=== PATIENT | female | born 1985 ===

== ENCOUNTER 2021-03-24 15:33 | Emergency (ER) | payer SELFPAY ==
[2021-03-24] MEDS ORDERED: Morphine 2 MG/ML SYRINGE IVPUSH ONE (16:00)
[2021-03-24] MEDS ORDERED: Morphine 2 MG/ML SYRINGE ONE (16:30)
[2021-03-24] MEDS ORDERED: Morphine 4 MG/ML VIAL ONE ×3 (16:53→19:22)
--- NOTE | 2021-03-24 17:18 | CR ---
DATE OF SERVICE: 03/24/2021 CLINICAL DATA: INJURY Right ankle: There there is a trimalleolar fracture subluxation of the ankle joint. There is and oblique fracture through the distal fibular diametaphysis with lateral displacement and angulation of the distal fragment with respect to the proximal. The talus is subluxed laterally 2.4 cm with respect to the talar dome on the frontal view. There is a transverse fracture through the medial malleolus of the distal tibia with 2 cm lateral displacement of the distal fracture fragment. There is also mildly displaced fracture through the posterior malleolus of the distal tibia. No other acute abnormalities. MTDD
[2021-03-24] MEDS ORDERED: Ondansetron 4 MG/2 ML SDV ONE (17:47)
[2021-03-24] MEDS ORDERED: Etomidate 2 MG/ML 10 ML SDV IVPUSH ONE (17:55)
[2021-03-24] MEDS ORDERED: Ondansetron 4 MG/2 ML SDV IVPUSH ONE (18:15)
[2021-03-24] MEDS ORDERED: Morphine 4 MG/ML VIAL IVPUSH ONE ×3 (18:20→19:17)
--- NOTE | 2021-03-24 18:22 | EDM.PDOC ---
ED HPI GENERAL MEDICAL PROBLEM - General Chief Complaint: Lower Extremity Injury/Pain Stated Complaint: RLE injury Time Seen by Provider: 03/24/21 17:15 Source of Information: Reports: Patient History Limitations: Reports: No Limitations - History of Present Illness INITIAL COMMENTS - FREE TEXT/NARRATIVE: 36-year-old female presents to the ED complaining of right ankle pain/deformity. Patient had a trip and fall yesterday, over a cord in her house landing with her full weight onto her ankle which buckled and rolled. Patient did not strike her head, neck, back or lose consciousness. Patient had immediate pain after the fall described as a 10/10 on the pain scale. Patient has been drinking heavily over the past week and a half. Patient has no other complaints. Pertin ent medical history: neurological work-up for some involuntary jerking of her limbs, with no diagnosis at this time, unknown if it is related to her alcohol use. Patient denies chest pain, shortness of breath, syncope/near syncope, nausea vomiting, diarrhea or constipation, black tarry stool/blood in her stool, headache, blurred vision. Treatments [employer]: Reports: Other (see below) (Alcohol) - Related Data Allergies Allergy/AdvReac Type Severity Reaction Status Date / Time No Known Allergies Allergy Verified 03/24/21 16:11 Home Meds: Home Meds NK [No Known Home Meds] 03/24/21 [History] Review of Systems - Review of Systems Review Of Systems: See Below Constitutional: Reports: No Symptoms Eyes: Reports: No Symptoms Ears: Reports: No Symptoms Nose: Reports: No Symptoms Mouth/Throat: Reports: Other (Cracked lips at the corners) Respiratory: Reports: No Symptoms Cardiovascular: Reports: No Symptoms GI/Abdominal: Reports: No Symptoms Genitourinary: Reports: No Symptoms Musculoskeletal: Reports: Back Pain (Chronic) Skin: Reports: No Symptoms Neurological: Reports: Gait Disturbance, Other (Limb twitching/jerking) Psychiatric: Reports: Depression ED EXAM, GENERAL - Physical Exam Exam: See Below Free Text/Narrative:: 36-year-old female found lying in stretcher in trauma bay 3. Patient in obvious distress due to pain secondary to deformed right ankle. Patient is alert and oriented 3/3 GCS 4 5 6, smells of EtOH. Speaking in full sentences. Exam Limited By: No Limitations General Appearance: Alert, WD/WN, Severe Distress (Pain) Eye Exam: Bilateral Eye: EOMI, PERRL Ears: Hearing Grossly Normal Throat/Mouth: Normal Voice, No Airway Compromise, Other (Poor dentition, angular cheilitis) Head: Atraumatic, Normocephalic Neck: Normal Inspection, Supple, Non-Tender, Full Range of Motion Respiratory/Chest: No Respiratory Distress, Lungs Clear, Normal Breath Sounds, No Accessory Muscle Use, Chest Non-Tender Cardiovascular: Normal Peripheral Pulses, Regular Rate, Rhythm, No Edema, No Gallop, No JVD, No Murmur, No Rub GI/Abdominal: Normal Bowel Sounds, Soft, Non-Tender, No Organomegaly, No Distention, No Abnormal Bruit, No Mass Back Exam: Normal Inspection, Full Range of Motion, NT Extremities: Leg Pain (Obvious deformity to the right ankle, per x-ray trimalleolar fracture unstable, pedal pulses are present patient has CMS intact) Neurological: Alert, Oriented, Normal Cognition Psychiatric: Normal Affect, Normal Mood Skin Exam: Warm, Dry, Intact, Normal Color, No Rash ED TRAUMA EXTREMITY PROCEDURES - Joint Reduction Right Ankle Sedation: Conscious Sedation (Etomidate 20 mg IV) Pre-Procedure NV Status: Normal Post-Procedure NV Status: Normal Technique: Other (Traction) Number of Attempts: 1 Post-Reduction Imaging: Unacceptably Reduced (Unstable) Joint Reduction Complications: Yes Joint Reduction Complication Description: Unable to get ankle to a stable position for splinting, spoke with orthopedics [place] Dr. Woods, recommended transportation to [place] for further care Course - Orders/Labs/Meds Orders: Active Orders 24 hr Category Date Time Status Ankle 2V Rt [CR] Stat Exams 03/24/21 17:53 Ordered DRUG SCREEN, URINE [URCHEM] Stat Lab 03/24/21 17:05 Ordered Labs: Laboratory Tests 03/24/21 03/24/21 Range/Units 17:22 17:22 WBC 15.1 H D (4.0-11.0) K/uL RBC 3.85 (3.80-5.80) M/uL Hgb 13.8 (11.5-16.5) g/dL Hct 38.6 (37.0-47.0) % MCV 100 H (76-96) fL MCH 35.8 H (27.0-32.0) pg MCHC 35.8 H (31.0-35.0) g/dL RDW 15.2 (11.0-16.0) % Plt Count 385 D (150-500) K/uL MPV 10.6 H (6.0-10.0) fL Sodium 140 (136-145) mmol/L Potassium 3.1 L (3.5-5.1) mmol/L Chloride 101 (98-107) mmol/L Carbon Dioxide 20.6 L D (21.0-32.0) mmol/L Anion Gap 21.5 H (5.0-15.0) mmol/L BUN 6 L (8-26) mg/dL Creatinine 0.61 D (0.55-1.02) mg/dL Est Cr Clr Drug Dosing TNP Estimated GFR (MDRD) > 60 (>60) MLS/MIN BUN/Creatinine Ratio 9.8 (6-25) Glucose 106 H (74-100) mg/dL Calcium 8.7 (8.5-10.1) mg/dL Meds: Medications Discontinued Medications Generic Name Dose Route Start Last Admin Trade Name Freq PRN Reason Stop Dose Admin Morphine Sulfate Confirm 03/24/21 16:30 Morphine 2 Mg/Ml Syringe Administered 03/24/21 16:31 Dose 2 mg .ROUTE .STK-MED ONE Morphine Sulfate Confirm 03/24/21 16:53 Morphine 4 Mg/Ml Vial Administered 03/24/21 16:54 Dose 4 mg .ROUTE .STK-MED ONE Ondansetron HCl Confirm 03/24/21 17:47 Ondansetron 4 Mg/2 Ml Sdv Administered 03/24/21 17:48 Dose 4 mg .ROUTE .STK-MED ONE - Radiology Interpretation Free Text/Narrative:: Trimalleolar fracture Departure - Departure Time of Disposition: 19:15 Disposition: DC/Tfer to Acute Hospital 02 Condition: Good Clinical Impression: Trimalleolar fracture of ankle, closed Qualifiers: Encounter type: initial encounter Laterality: right Qualified Code(s): S82.851A - Displaced trimalleolar fracture of right lower leg, initial encounter for closed fracture - Discharge Information *PRESCRIPTION DRUG MONITORING PROGRAM REVIEWED*: No *COPY OF PRESCRIPTION DRUG MONITORING REPORT IN PATIENT DARIANA: No Referrals: PCP,None [Primary Care Provider] - Forms: ED Department Discharge, Interfacility Transfer EMTALA - My Orders Last 24 Hours: My Active Orders 03/24/21 17:53 Ankle 2V Rt [CR] Stat - Assessment/Plan Last 24 Hours: My Active Orders 03/24/21 17:53 Ankle 2V Rt [CR] Stat Assessment:: 1. Ankle pain 2. Ankle deformity Patient has a trimalleolar fracture of the ankle. Plan: ABC, history, exam, addressed pain control with morphine IV, x-ray, orthopedics consult/[place] ED consult, reduction attempted with conscious sedation etomidate 20 mg, reduction unsuccessful, continued pain relief with morphine, ankle placed in vacuum splint, patient transported to [place] ED for reduction and splinting per Dr. Peggy DEL TORO, accepted by Dr. Oconnor in [place] ED.
[2021-03-24] MEDS ORDERED: Sodium Chloride 0.9% 10 ML Syringe FLUSH PRN (19:19)
[2021-03-24] MEDS ORDERED: Sodium Chloride 0.9% 1,000 ML IV SCH (19:30)
--- NOTE | 2021-03-25 21:09 | CR ---
CLINICAL DATA: Ankle injury. RIGHT ANKLE, 24 MARCH 2021: The trimalleolar fracture subluxation has been partially reduced with improved alignment of the fracture fragments as well as the talus with respect to the talar dome. No new abnormalities. Job: [id number] [facility]
== END 2021-03-24 19:05 ==
LOC: LB.ED 15:33
DX: S82.851A Displaced trimalleolar fracture of right lower leg, initial encounter for closed fracture (principal); W01.0XXA Fall on same level from slipping, tripping and stumbling without subsequent striking against object, initial encounter
CPT/HCPCS: 27818; 36415; 73600; 80048; 80307; 85027; 96374; 96375; 96376; 99284; A0425; A0429; J2270; J2405; J3490; J7030

== ENCOUNTER 2021-10-18 05:30 | Inpatient (IN) | payer MEDICAID ==
[2021-10-18] MEDS ORDERED: Sodium Chloride 0.9% 1,000 ML IV ONE (05:49)
[2021-10-18] MEDS: Sodium Chloride 0.9% 1,000 ML IV SCH ×3 (06:47→18:38)
[2021-10-18] MEDS ORDERED: Ondansetron 4 MG/2 ML SDV IVPUSH ONE (07:06)
[2021-10-18] MEDS ORDERED: Ondansetron 4 MG/2 ML SDV ONE (07:18)
[2021-10-18] MEDS ORDERED: Ondansetron 4 MG/2 ML SDV IVPUSH PRN (10:09)
[2021-10-18] MEDS: cefTRIAXone 1 GM Vial IVPUSH SCH (11:15)
[2021-10-18] MEDS: Enoxaparin 40 MG/0.4 ML Syringe SUBCUT SCH (11:59)
[2021-10-18] MEDS: Multivitamins with Iron/Calcium/Folic Acid/Minerals Tab PO SCH (12:01)
[2021-10-19] MEDS: Sodium Chloride 0.9% 1,000 ML IV SCH ×2 (01:02→07:34)
[2021-10-19] MEDS: Enoxaparin 40 MG/0.4 ML Syringe SUBCUT SCH (07:45)
[2021-10-19] MEDS: Multivitamins with Iron/Calcium/Folic Acid/Minerals Tab PO SCH (07:46)
[2021-10-19 09:10] LABS: ESTIMATED GFR > 60 MLS/MIN (>60)
[2021-10-19] MEDS: cefTRIAXone 1 GM Vial IVPUSH SCH (11:33)
[2021-10-19] MEDS ORDERED: Carboxymethylcellulose Sodium 1% Ophth Gel 15 ML Bottle EYEBOTH PRN (13:47)
[2021-10-19] MEDS: Thiamine 200 MG/2 ML MDV IVPUSH SCH (14:09)
[2021-10-19] MEDS ORDERED: Polyvinyl Alcohol 1.4% Ophth Soln 15 ML Bottle EYEBOTH SCH (14:15)
[2021-10-19] MEDS ORDERED: LORazepam 2 MG/ML SDV IV SCH (14:15)
[2021-10-19] MEDS: Pantoprazole 40 MG Vial IV SCH (14:50)
[2021-10-19] MEDS: Sodium Chloride 0.9% 10 ML Syringe IV SCH (19:42)
[2021-10-19] MEDS: cloNIDine 0.1 MG Tab PO PRN (22:02)
[2021-10-20 03:09] LABS: HBSAG SCREEN Negative (Negative); HCV AB <0.1 s/co ratio (0.0-0.9); HEP A AB, IGM Negative (Negative); HEP B CORE AB, IGM Negative (Negative)
[2021-10-20] MEDS: cloNIDine 0.1 MG Tab PO PRN (05:38)
[2021-10-20] MEDS: Pantoprazole 40 MG Vial IV SCH (07:21)
[2021-10-20] MEDS: Sodium Chloride 0.9% 10 ML Syringe IV SCH ×2 (07:21→19:57)
[2021-10-20] MEDS: Enoxaparin 40 MG/0.4 ML Syringe SUBCUT SCH (07:21)
[2021-10-20] MEDS: Thiamine 200 MG/2 ML MDV IVPUSH SCH (07:22)
[2021-10-20] MEDS: Multivitamins with Iron/Calcium/Folic Acid/Minerals Tab PO SCH (07:22)
[2021-10-20 08:06] LABS: ESTIMATED GFR > 60 MLS/MIN (>60)
[2021-10-20] MEDS ORDERED: Levothyroxine 25 MCG Tab PO ONE (11:16)
[2021-10-20] MEDS: cefTRIAXone 1 GM Vial IVPUSH SCH (11:28)
[2021-10-21] MEDS: Levothyroxine 25 MCG Tab PO SCH (06:13)
[2021-10-21] MEDS: Multivitamins with Iron/Calcium/Folic Acid/Minerals Tab PO SCH (07:55)
[2021-10-21] MEDS: Thiamine 200 MG/2 ML MDV IVPUSH SCH (07:55)
[2021-10-21] MEDS: Pantoprazole 40 MG Vial IV SCH (07:55)
[2021-10-21] MEDS: Sodium Chloride 0.9% 10 ML Syringe IV SCH ×2 (07:55→19:23)
[2021-10-21] MEDS: Enoxaparin 40 MG/0.4 ML Syringe SUBCUT SCH (07:55)
[2021-10-21] MEDS: cefTRIAXone 1 GM Vial IVPUSH SCH (10:42)
[2021-10-22] MEDS: Pantoprazole 40 MG Vial IV SCH (07:35)
[2021-10-22] MEDS: Multivitamins with Iron/Calcium/Folic Acid/Minerals Tab PO SCH (07:35)
[2021-10-22] MEDS: Sodium Chloride 0.9% 10 ML Syringe IV SCH ×2 (07:35→19:25)
[2021-10-22] MEDS: Enoxaparin 40 MG/0.4 ML Syringe SUBCUT SCH (07:35)
[2021-10-22] MEDS: cefTRIAXone 1 GM Vial IVPUSH SCH (11:01)
[2021-10-23] MEDS: Levothyroxine 50 MCG Tab PO SCH (06:42)
[2021-10-23] MEDS: Levothyroxine 25 MCG Tab PO SCH (07:06)
[2021-10-23] MEDS: Enoxaparin 40 MG/0.4 ML Syringe SUBCUT SCH (07:14)
[2021-10-23] MEDS: Multivitamins with Iron/Calcium/Folic Acid/Minerals Tab PO SCH (07:15)
[2021-10-23] MEDS: Sodium Chloride 0.9% 10 ML Syringe IV SCH ×2 (07:15→19:40)
[2021-10-23] MEDS: Pantoprazole 40 MG Vial IV SCH (07:43)
[2021-10-24] MEDS: Levothyroxine 50 MCG Tab PO SCH (06:45)
[2021-10-24] MEDS: Enoxaparin 40 MG/0.4 ML Syringe SUBCUT SCH (08:18)
[2021-10-24] MEDS: Sodium Chloride 0.9% 10 ML Syringe IV SCH (08:18)
[2021-10-24] MEDS: Multivitamins with Iron/Calcium/Folic Acid/Minerals Tab PO SCH (08:18)
[2021-10-24] MEDS: Pantoprazole 40 MG Vial IV SCH (08:22)
[2021-10-24 09:56] LABS: ESTIMATED GFR > 60 MLS/MIN (>60)
[2021-10-24 13:09] LABS: LYME TOTAL ANTIBODY EIA Negative (Negative)
== END 2021-10-24 17:40 | DRG 947 ==
LOC: LB.ED 05:30 → LB.MS 08:47
PROVIDERS: ADMIT Nurse Practitioner Family; ATTEND Nurse Practitioner Family
DX: R41.82 Altered mental status, unspecified (principal); G93.41 Metabolic encephalopathy; R65.10 Systemic inflammatory response syndrome (SIRS) of non-infectious origin without acute organ dysfunction; R27.0 Ataxia, unspecified; E86.0 Dehydration; R41.0 Disorientation, unspecified; R44.1 Visual hallucinations; R00.0 Tachycardia, unspecified; F17.210 Nicotine dependence, cigarettes, uncomplicated; Z20.822 Contact with and (suspected) exposure to COVID-19; R53.1 Weakness; R74.8 Abnormal levels of other serum enzymes; R79.89 Other specified abnormal findings of blood chemistry; K70.10 Alcoholic hepatitis without ascites; E03.9 Hypothyroidism, unspecified
CPT/HCPCS: 36415; 70450; 70551; 71045; 80053; 80074; 80307; 81001; 81025; 82140; 83605; 83735; 84443; 85025; 85651; 86140; 86308; 86618; 87040; 87476; 87804; 87804-59; 96361; 96374; 97110-GP; 97161-GP; 97530-GP; 99223; 99232; 99233; 99238; 99285-25; A0425; A0429; A9270-GY; C9113; J0696; J1650; J2405; J3411; J3490; J7030; U0002